=== PATIENT | male | born 1945 | race African-American/Black ===

== ENCOUNTER 2018-07-30 20:39 | Emergency (ER) | payer MEDICARE, OTHER ==
[~2018-07-30] VITALS: Ht 182.9 cm; Wt 111.1 kg
[2018-07-30 20:48] VITALS: BP 164/97
[2018-07-30] MEDS ORDERED: PENI500T PO (21:05)
[2018-07-30] MEDS ORDERED: HYDR-3164 PO (21:05)
--- NOTE | 2018-07-30 21:06 | PHYS DOC ---
Past Medical History Past Medical History: Hypertension Additional Information: Denies smoking Adult General Chief Complaint Chief Complaint: DENTAL PROBLEM HPI HPI Patient is a 73 year old male who presents with complaining of abdominal pain. Patient states he woke up this morning with the facial edema and pain in left lower jaw and, as a constant pain that getting worse with chewing and talking. Patient denies fracture teeth, fever and chills, dysphagia, chest pain or shortness of breath. Patient states he took [id number] ibuprofen with partial improvement of his pain. Review of Systems Review of Systems Constitutional: Denies fever or chills [] Eyes: Denies change in visual acuity, redness, or eye pain [] HENT: Denies nasal congestion or sore throat, reports dental pain[] Respiratory: Denies cough or shortness of breath [] Cardiovascular: No additional information not addressed in HPI [] GI: Denies abdominal pain, nausea, vomiting, bloody stools or diarrhea [] : Denies dysuria or hematuria [] Musculoskeletal: Denies back pain or joint pain [] Integument: Denies rash or skin lesions [] Neurologic: Denies headache, focal weakness or sensory changes [] Endocrine: Denies polyuria or polydipsia [] All other systems were reviewed and found to be within normal limits, except as documented in this note. Physical Exam Physical Exam Constitutional: Well developed, well nourished, mild distress, non-toxic appearance. [] HENT: Normocephalic, atraumatic, left lower facial mild edema, left lower jaw gum edema and erythema with tenderness of tooth# 19, bilateral external ears normal, oropharynx moist, no oral exudates, nose normal. [] Eyes: PERRLA, EOMI, conjunctiva normal, no discharge. [] Neck: Normal range of motion, no tenderness, supple, no stridor. [] Cardiovascular:Heart rate regular rhythm, no murmur [] Lungs & Thorax: Bilateral breath sounds clear to auscultation [] Neurologic: Alert and oriented X 3, normal motor function, normal sensory function, no focal deficits noted. [] Psychologic: Affect normal, judgement normal, mood normal. [] EKG EKG [] Radiology/Procedures Radiology/Procedures [] Course & Med Decision Making Course & Med Decision Making I've spoken with the patient and/or caregivers. I've explained the patient's condition, diagnosis and treatment plan based on information available to me at this time. I've answered the patient's and/or caregivers questions and addressed any concerns. The patient and/or caregivers have a good understanding the patient's diagnosis, condition and treatment plan as can be expected at this point. Vital signs have been stabilized. The patient's condition is stable for discharge from the emergency department. The patient will pursue further outpatient evaluation with her primary care provider or other designated consulting physician as outlined in the discharge instructions. Patient and/or caregivers are agreeable to this plan of care and follow-up instructions have been explained in detail. The patient and/or caregivers have received these instructions in written format and expressed understanding of these discharge instructions. The patient and her caregivers are aware that if any significant change in condition or worsening of symptoms should prompt him to immediately return to this of the closest emergency department. If an emergent department is not readily available I would encourage him to call 911. Neyon Disclaimer Dragon Disclaimer This electronic medical record was generated, in whole or in part, using a voice recognition dictation system. Departure Departure Impression: Primary Impression: Dental abscess Disposition: HOME, SELF-CARE (at 2102) Condition: STABLE Patient Instructions: Dental Abscess Additional Instructions: Follow-up with your dentist in 5-7 days, call tomorrow for making an appointme nt Use [id number] Listerine Return to ER if not getting better Scripts Penicillin V Potassium (PENICILLIN V POTASSIUM) 500 Mg Tablet 2 TAB PO Q12HR, #40 TAB Prov: THIAGO HOROWITZ MD 07/30/18 Hydrocodone/Apap 5-325 (NORCO 5-325 TABLET) 1 Each Tablet 1 TAB PO PRN Q6HRS PRN for PAIN, #10 TAB 0 Refills Prov: THIAGO HOROWITZ MD 07/30/18 THIAGO HOROWITZ MD July 30, 2018 21:06
== END 2018-07-30 21:30 | disposition home or self-care (01) ==
LOC: ER 20:39
DX: K04.7 Periapical abscess without sinus (principal); R10.9 Unspecified abdominal pain; I10 Essential (primary) hypertension
CPT/HCPCS: 99283